=== PATIENT | female | born 1930 | race Caucasian/White ===

== ENCOUNTER 2018-05-29 17:31 | Inpatient (IN) | payer MEDICARE, MEDICAID ==
[~2018-05-29] VITALS: Ht 162.6 cm; Wt 69.9 kg
[2018-05-29] MEDS ORDERED: HYDROmorphone HCL 2 MG/ML VL IV ONE ×2 (18:15→21:45)
[2018-05-29] MEDS ORDERED: ONDANSETRON HCL 4 MG/2 ML VIAL IV ONE ×2 (18:15→22:00)
[2018-05-29 18:40] LABS: Urine Bacteria FEW /hpf (None Seen); Urine Blood Negative /uL (Negative); Urine Mucus FEW (None Seen); Urine Specific Gravity 1.023 (1.001-1.035); Urine WBC 1 /hpf (0 - 5)
[2018-05-29 19:20] LABS: Basophils # (auto) 0 uL; Basophils % (auto) 0.3 % (0.0-2.0); Eosinophils # (auto) 0.1 uL; Eosinophils % (auto) 1.2 % (0.0-7.0); Hematocrit 32.4 % (36.0-46.0); Hemoglobin 10.9 g/dL (12.2-16.2); Lymphocytes # (auto) 0.5 uL; Lymphocytes % (auto) 11.1 % (10.0-50.0); Mean Corpuscular Hemoglobin 33.6 pg (28.0-32.0); Mean Corpuscular Hgb Conc. 33.6 g/dL (32.0-36.0); Mean Corpuscular Volume 99.8 fL (80.0-100.0); Monocytes # (auto) 0.2 uL; Monocytes % (auto) 5.1 % (0.0-12.0); Neutrophils # (auto) 3.6 uL; Neutrophils % (auto) 82.3 % (37.0-80.0); Platelet Count (auto) 105 10^3/uL (140-450); Red Blood Cells 3.24 10^6/uL (4.0-5.20); Red Cell Distribution Width 14.4 % (11.8-14.3); White Blood Cell 4.4 10^3/uL (4.4-10.8)
[2018-05-29 19:33] LABS: Partial Thromboplastin Time 24.7 sec (23.78-33.04); Prothrombin Time 10.7 sec (9.27-12.13)
[2018-05-29 19:38] LABS: Albumin 3.9 g/dL (3.4-5.0); BUN/Creatinine Ratio 18.9; Calcium 8.8 mg/dL (8.5-10.1); Magnesium 2.1 mg/dL (1.6-2.6); Potassium 4.6 mmol/L (3.5-5.1)
[2018-05-29 19:41] LABS: Bilirubin, Total 0.5 mg/dL (0.2-1.0); Total Protein 6.9 g/dL (6.4-8.2)
[2018-05-29] MEDS ORDERED: HYDROmorphone HCL 2 MG/ML VL ONE (21:46)
[2018-05-29] MEDS ORDERED: ONDANSETRON HCL 4 MG/2 ML VIAL ONE (21:47)
[2018-05-29] MEDS ORDERED: HYDROmorphone HCL 2 MG/ML VL IV PRN (23:15)
[2018-05-29] MEDS ORDERED: ACETAMINOPHEN 500 MG TAB PO PRN (23:15)
[2018-05-30 01:11] VITALS: BP 92/65
[2018-05-30 05:14] VITALS: BP 117/96
[2018-05-30 06:25] LABS: Basophils # (auto) 0 uL; Basophils % (auto) 0.1 % (0.0-2.0); Eosinophils # (auto) 0 uL; Red Cell Distribution Width 14.4 % (11.8-14.3); White Blood Cell 5.3 10^3/uL (4.4-10.8)
[2018-05-30 06:27] LABS: Eosinophils % (auto) 0.1 % (0.0-7.0); Hematocrit 29.1 % (36.0-46.0); Lymphocytes # (auto) 0.4 uL; Lymphocytes % (auto) 6.8 % (10.0-50.0); Mean Corpuscular Hemoglobin 34.2 pg (28.0-32.0); Mean Corpuscular Hgb Conc. 34.2 g/dL (32.0-36.0); Mean Corpuscular Volume 100.1 fL (80.0-100.0); Monocytes # (auto) 0.4 uL; Monocytes % (auto) 6.7 % (0.0-12.0); Neutrophils # (auto) 4.5 uL; Neutrophils % (auto) 86.3 % (37.0-80.0); Nucleated Red Blood Cells % 0.1 %; Platelet Count (auto) 89 10^3/uL (140-450); Red Blood Cells 2.91 10^6/uL (4.0-5.20)
[2018-05-30 06:30] LABS: BUN/Creatinine Ratio 20.7; Calcium 8.7 mg/dL (8.5-10.1); Potassium 4.4 mmol/L (3.5-5.1)
[2018-05-30] MEDS: ALPRAZolam 0.5 MG TAB PO PRN (06:37)
[2018-05-30 09:00] VITALS: BP 99/50
[2018-05-30 13:00] VITALS: BP 105/55
[2018-05-30] MEDS: ONDANSETRON HCL 4 MG/2 ML VIAL IV PRN (13:15)
[2018-05-30] MEDS ORDERED: PANTOPRAZOLE 40 MG/10 ML VIAL IV ONE (13:45)
[2018-05-30] MEDS: SODIUM CHLORIDE 0.9% 1,000 ML IV SCH (14:26)
[2018-05-30 17:00] VITALS: BP 121/83
[2018-05-30 22:22] VITALS: BP 122/60
[2018-05-31] MEDS: ALPRAZolam 0.5 MG TAB PO PRN (01:51)
[2018-05-31 05:24] VITALS: BP 104/49
[2018-05-31] MEDS: HYDROmorphone HCL 2 MG/ML VL IV PRN ×2 (05:29→16:39)
[2018-05-31 05:32] LABS: Basophils # (auto) 0 uL; Eosinophils # (auto) 0 uL; Eosinophils % (auto) 0.9 % (0.0-7.0); Hemoglobin 9.7 g/dL (12.2-16.2); Lymphocytes # (auto) 0.2 uL; Mean Corpuscular Hemoglobin 34.3 pg (28.0-32.0); Monocytes # (auto) 0.3 uL; Red Cell Distribution Width 14.4 % (11.8-14.3)
[2018-05-31 05:34] LABS: Hematocrit 28.4 % (36.0-46.0); Lymphocytes % (auto) 4.9 % (10.0-50.0); Mean Corpuscular Hgb Conc. 34.3 g/dL (32.0-36.0); Mean Corpuscular Volume 100.1 fL (80.0-100.0); Neutrophils # (auto) 4.5 uL; Neutrophils % (auto) 89.2 % (37.0-80.0); Platelet Count (auto) 73 10^3/uL (140-450); Red Blood Cells 2.84 10^6/uL (4.0-5.20)
[2018-05-31 05:47] LABS: BUN/Creatinine Ratio 28.3; Calcium 8.3 mg/dL (8.5-10.1); Potassium 4.2 mmol/L (3.5-5.1)
[2018-05-31] MEDS: SODIUM CHLORIDE 0.9% 1,000 ML IV SCH ×2 (05:55→22:35)
[2018-05-31] MEDS ORDERED: ceFAZolin 1GM/50ML 50 ML IV ONE (07:20)
[2018-05-31] MEDS: TARCEVA PO SCH (10:00)
[2018-05-31] MEDS ORDERED: MIDAZOLAM HCL 1MG/1ML-2 ML VIAL ONE (10:03)
[2018-05-31] MEDS ORDERED: fentaNYL CITRATE 100 MCG/2 ML VL ONE (10:03)
[2018-05-31] MEDS ORDERED: MEPERIDINE HCL (50 MG/ML) 1 ML VIAL ONE (10:03)
[2018-05-31] MEDS ORDERED: ETOMIDATE (2MG/ML) 20ML VIAL IV ONE (10:22)
[2018-05-31] MEDS ORDERED: DEXAMETHASONE SOD PHOS 10MG/1ML VIAL INJ ONE (10:22)
[2018-05-31] MEDS ORDERED: LABETALOL HCL 5 MG/ML 4ML SYRINGE IV PRN (12:00)
[2018-05-31] MEDS ORDERED: MORPHINE SULFATE 4 MG/ML SYR/VIAL IV PRN ×3 (12:00)
[2018-05-31] MEDS ORDERED: NITROGLYCERIN 0.4 MG SL TAB SL PRN (12:00)
[2018-05-31] MEDS ORDERED: ePHEDrine SULFATE 50 MG/ML AMP IV PRN (12:00)
[2018-05-31] MEDS ORDERED: MIDAZOLAM HCL 1MG/1ML-2 ML VIAL IV PRN (12:00)
[2018-05-31] MEDS ORDERED: MORPHINE SULFATE 4 MG/ML SYR/VIAL IV ONE (12:00)
[2018-05-31] MEDS ORDERED: HYDROmorphone HCL 2 MG/ML VL IV PRN (12:00)
[2018-05-31] MEDS ORDERED: KETOROLAC TROMETH 30 MG/ML 1ML VIAL IV ONE (12:00)
[2018-05-31] MEDS ORDERED: ONDANSETRON HCL 4 MG/2 ML VIAL IV ONE (12:00)
[2018-05-31 13:00] VITALS: BP 111/80
[2018-05-31] MEDS: ceFAZolin 1GM/50ML 50 ML IV SCH ×3 (13:38→23:57)
[2018-05-31] MEDS: PANTOPRAZOLE 40 MG/10 ML VIAL IV SCH (13:41)
[2018-05-31] MEDS: LACTATED RINGER'S 1,000 ML IV SCH ×2 (13:42→21:46)
[2018-05-31 15:33] LABS: Basophils # (auto) 0 uL; Eosinophils # (auto) 0 uL; Lymphocytes # (auto) 0.1 uL; Monocytes # (auto) 0.2 uL
[2018-05-31 15:35] LABS: Eosinophils % (auto) 0.1 % (0.0-7.0); Hematocrit 22.6 % (36.0-46.0); Hemoglobin 7.6 g/dL (12.2-16.2); Lymphocytes % (auto) 2.3 % (10.0-50.0); Mean Corpuscular Hgb Conc. 33.9 g/dL (32.0-36.0); Mean Corpuscular Volume 100.4 fL (80.0-100.0); Monocytes % (auto) 4.6 % (0.0-12.0); Neutrophils # (auto) 4.6 uL; Platelet Count (auto) 103 10^3/uL (140-450); Red Blood Cells 2.25 10^6/uL (4.0-5.20); Red Cell Distribution Width 14.2 % (11.8-14.3); White Blood Cell 4.9 10^3/uL (4.4-10.8)
[2018-05-31] MEDS: ONDANSETRON HCL 4 MG/2 ML VIAL IV PRN (16:39)
[2018-05-31 17:00] VITALS: BP 157/85
[2018-05-31 22:18] VITALS: BP 123/76
[2018-06-01] VITALS (10 sets, daily range): BP systolic 97–134; BP diastolic 47–90
[2018-06-01] MEDS: LACTATED RINGER'S 1,000 ML IV SCH ×2 (06:53→18:30)
[2018-06-01] MEDS: PANTOPRAZOLE 40 MG/10 ML VIAL IV SCH (09:24)
[2018-06-01] MEDS ORDERED: DOCUSATE SOD 100 MG CAP PO PRN (10:15)
[2018-06-01] MEDS: Ensure Enlive Strawberry 8oz Bottle PO SCH ×2 (12:26→18:30)
[2018-06-01] MEDS: TARCEVA PO SCH (15:23)
[2018-06-01] MEDS: SODIUM CHLORIDE 0.9% 1,000 ML IV SCH (15:24)
[2018-06-01] MEDS: HYDROmorphone HCL 2 MG/ML VL IV PRN (18:29)
[2018-06-02] VITALS (14 sets, daily range): BP systolic 92–132; BP diastolic 51–78
[2018-06-02 05:59] LABS: Hemoglobin 7.6 g/dL (12.2-16.2)
[2018-06-02 06:00] LABS: Hematocrit 21.9 % (36.0-46.0)
[2018-06-02] MEDS: SODIUM CHLORIDE 0.9% 1,000 ML IV SCH (10:28)
[2018-06-02] MEDS: Ensure Enlive Strawberry 8oz Bottle PO SCH ×3 (10:29→18:01)
[2018-06-02] MEDS: PANTOPRAZOLE 40 MG TAB PO SCH (10:29)
[2018-06-02] MEDS: TARCEVA PO SCH (10:29)
[2018-06-02] MEDS ORDERED: FUROSEMIDE 40 MG/4 ML VIAL IV ONE (10:30)
[2018-06-02] MEDS: HYDROmorphone HCL 2 MG/ML VL IV PRN (10:51)
[2018-06-03] MEDS: SODIUM CHLORIDE 0.9% 1,000 ML IV SCH ×2 (00:35→17:50)
[2018-06-03 04:45] VITALS: BP 125/54
[2018-06-03 06:54] LABS: Basophils # (auto) 0 uL; Basophils % (auto) 0.3 % (0.0-2.0); Eosinophils # (auto) 0.1 uL; Hematocrit 27.9 % (36.0-46.0); Hemoglobin 9.8 g/dL (12.2-16.2); Lymphocytes # (auto) 0.3 uL; Lymphocytes % (auto) 8.8 % (10.0-50.0); Mean Corpuscular Hgb Conc. 35.1 g/dL (32.0-36.0); Mean Corpuscular Volume 93.9 fL (80.0-100.0); Monocytes # (auto) 0.3 uL; Neutrophils % (auto) 80.9 % (37.0-80.0); Nucleated Red Blood Cells % 0.1 %; Platelet Count (auto) 81 10^3/uL (140-450); Red Blood Cells 2.97 10^6/uL (4.0-5.20); Red Cell Distribution Width 16.8 % (11.8-14.3); White Blood Cell 3.7 10^3/uL (4.4-10.8)
[2018-06-03 08:00] VITALS: BP 114/69
[2018-06-03 09:00] VITALS: BP 114/69
[2018-06-03] MEDS: TARCEVA PO SCH (09:39)
[2018-06-03] MEDS: PANTOPRAZOLE 40 MG TAB PO SCH (09:39)
[2018-06-03] MEDS: Ensure Enlive Strawberry 8oz Bottle PO SCH ×3 (09:39→17:50)
[2018-06-03] MEDS ORDERED: ASPirin-EC 81 mg tab PO SCH (10:00)
[2018-06-03] MEDS ORDERED: HYDROcodone-ACET 5/325MG TAB PO PRN (10:00)
[2018-06-03] MEDS: HYDROmorphone HCL 2 MG/ML VL IV PRN (10:59)
[2018-06-03 12:00] VITALS: BP 140/54
[2018-06-03 17:00] VITALS: BP 119/59
[2018-06-03 17:58] VITALS: BP 140/54
== END 2018-06-03 18:40 | DRG 481 ==
LOC: EDBD 17:31 → ER 17:33 → OVERFLOW 23:18 → CENTRAL 23:45
PROVIDERS: ADMIT Nurse Practitioner Family; ATTEND Internal Medicine
PROC: 30233R1 Transfusion of Nonautologous Platelets into Peripheral Vein, Percutaneous Approach (ICD-10-PCS; 2018-05-31)
PROC: 30233N1 Transfusion of Nonautologous Red Blood Cells into Peripheral Vein, Percutaneous Approach (ICD-10-PCS; 2018-05-31)
PROC: 0QS604Z Reposition Right Upper Femur with Internal Fixation Device, Open Approach (ICD-10-PCS; principal; 2018-05-31 09:55)
DX: M84.451A Pathological fracture, right femur, initial encounter for fracture (principal); C78.7 Secondary malignant neoplasm of liver and intrahepatic bile duct; C78.00 Secondary malignant neoplasm of unspecified lung; F03.90 Unspecified dementia, unspecified severity, without behavioral disturbance, psychotic disturbance, mood disturbance, and anxiety; D64.81 Anemia due to antineoplastic chemotherapy; N18.3 Chronic kidney disease, stage 3 (moderate); I35.0 Nonrheumatic aortic (valve) stenosis; M85.80 Other specified disorders of bone density and structure, unspecified site; Z91.040 Latex allergy status; W01.0XXA Fall on same level from slipping, tripping and stumbling without subsequent striking against object, initial encounter; D69.6 Thrombocytopenia, unspecified; M21.20 Flexion deformity, unspecified site; Z85.3 Personal history of malignant neoplasm of breast; Y93.89 Activity, other specified; Y92.89 Other specified places as the place of occurrence of the external cause; M21.851 Other specified acquired deformities of right thigh
CPT/HCPCS: 36415; 71045; 73502; 76001; 80048; 80053; 81001; 83735; 85014; 85018; 85025; 85610; 85730; 86850; 86900; 86901; 86920; 92610; 93005; 93306; 94761; 96361; 96374; 96375; 97163; 97530; C1713; C1769; C9113; G0378; J0690; J1100; J2250; J2405

== ENCOUNTER 2018-06-26 16:54 | Emergency (ER) | payer MEDICARE, MEDICAID ==
[~2018-06-26] VITALS: Ht 160 cm; Wt 59.0 kg
[2018-06-26 19:56] VITALS: BP 117/91
== END 2018-06-26 20:18 | disposition home or self-care (01) ==
LOC: EDBD 16:54 → ER 16:57
DX: M25.551 Pain in right hip (principal); R51 Headache; J44.9 Chronic obstructive pulmonary disease, unspecified; E78.5 Hyperlipidemia, unspecified; Z88.5 Allergy status to narcotic agent; Z91.040 Latex allergy status; Z90.49 Acquired absence of other specified parts of digestive tract; Z90.710 Acquired absence of both cervix and uterus; W18.39XA Other fall on same level, initial encounter; Y93.89 Activity, other specified; Y99.8 Other external cause status; Y92.89 Other specified places as the place of occurrence of the external cause
CPT/HCPCS: 70450; 72125; 72128; 72131; 73562; 73700

== ENCOUNTER 2018-12-21 12:07 | Emergency (ER) | payer MEDICARE, MEDICAID ==
[~2018-12-21] VITALS: Ht 157.5 cm; Wt 58.1 kg
[2018-12-21] MEDS ORDERED: SODIUM CHLORIDE 0.9% 1,000 ML IV ONE (13:40)
[2018-12-21 13:50] LABS: Basophils # (auto) 0 uL; Eosinophils # (auto) 0 uL; Hemoglobin 11.2 g/dL (12.2-16.2); Lymphocytes # (auto) 0.7 uL; Monocytes # (auto) 0.3 uL; Neutrophils # (auto) 1.9 uL; Platelet Count (auto) 111 10^3/uL (140-450)
[2018-12-21 13:53] LABS: Basophils % (auto) 0.1 % (0.0-2.0); Eosinophils % (auto) 1.4 % (0.0-7.0); Hematocrit 32.3 % (36.0-46.0); Lymphocytes % (auto) 23.6 % (10.0-50.0); Mean Corpuscular Hemoglobin 34.4 pg (28.0-32.0); Mean Corpuscular Hgb Conc. 34.6 g/dL (32.0-36.0); Mean Corpuscular Volume 99.3 fL (80.0-100.0); Monocytes % (auto) 8.9 % (0.0-12.0); Red Blood Cells 3.25 10^6/uL (4.0-5.20); Red Cell Distribution Width 13.4 % (11.8-14.3); White Blood Cell 2.9 10^3/uL (4.4-10.8)
[2018-12-21 14:11] LABS: Urine WBC None Seen /hpf (0 - 5)
[2018-12-21 14:37] LABS: Albumin 3.7 g/dL (3.4-5.0); Calcium 8.8 mg/dL (8.5-10.1)
[2018-12-21 14:40] LABS: Urine Bacteria NONE SEEN /hpf (None Seen); Urine Blood Negative /uL (Negative); Urine Specific Gravity 1.022 (1.001-1.035)
[2018-12-21 14:41] LABS: BUN/Creatinine Ratio 21.2; Bilirubin, Total 0.4 mg/dL (0.2-1.0); Total Protein 6.9 g/dL (6.4-8.2)
[2018-12-21 15:40] VITALS: BP 128/66
== END 2018-12-21 16:28 | disposition home or self-care (01) ==
LOC: ER 12:10
DX: E86.0 Dehydration (principal); J44.9 Chronic obstructive pulmonary disease, unspecified; E78.5 Hyperlipidemia, unspecified; Z90.49 Acquired absence of other specified parts of digestive tract; Z88.5 Allergy status to narcotic agent; Z91.040 Latex allergy status; Z90.710 Acquired absence of both cervix and uterus
CPT/HCPCS: 36415; 80053; 81001; 85025; 93005; 96360; 99284; J7030